=== PATIENT | female | born 1990 | race Caucasian/White ===

== ENCOUNTER 2021-11-12 09:27 | Emergency (ER) | payer OTHER ==
[~2021-11-12 09:27] MED LIST: COLACE100 MG PO; DIAZEPAM 5MG TAB5 MG PO; FEOSOL325 MG PO; MOTRIN600 MG PO; ONDANSETRON ODT4 MG PO
[2021-11-12 10:35] LABS: CORONAVIRUS 2019 SARS-COV-2 NEGATIVE (NEGATIVE); INFLUENZA A NAA NEGATIVE (NEGATIVE)
[2021-11-12 12:26] LABS: BASOPHIL 0.4 % (0-2); HCT 39.2 % (37.0-47.0); HGB 13.7 g/dl (12.5-16.0); LYMPHOCYTE 26.4 % (15-48); MCH 30.9 pg (25.0-31.0); MCHC 34.9 g/dL (32.0-36.0); MCV 88.5 fL (78.0-100.0); MONOCYTE 4.9 % (0-12); MPV 9.5 fL (6.0-9.5); NEUTROPHIL 66.1 % (41-80); NRBC 0; PLT 230 K/uL (150-400); RBC 4.43 M/uL (4.20-5.40); RDW 12.1 % (11.5-14.0); WBC 10.1 K/uL (4.0-10.5)
[2021-11-12 12:52] LABS: BUN/CREAT RATIO (CALC) 11.7 RATIO; CREATININE 0.6 mg/dL (0.51-0.95); POTASSIUM 4.3 mmol/L (3.5-5.1)
[2021-11-12 13:31] LABS: BILIRUBIN NEGATIVE (NEGATIVE); BLOOD 3+ Ery/uL (NEGATIVE); CLARITY CLEAR (CLEAR); COLOR YELLOW (YELLOW); GLUCOSE (U) NORMAL (NORMAL); LEUKOCYTES NEGATIVE Leu/uL (NEGATIVE); NITRITE NEGATIVE (NEGATIVE); PROTEIN NEGATIVE (NEGATIVE); SPECIFIC GRAVITY 1.025 (1.001-1.030); UROBILINOGEN 0.2 mg/dL (0.2-1.0); pH 6.5 (5.0-9.0)
[2021-11-12 13:47] LABS: AMPHETAMINES NEGATIVE (NEGATIVE); BARBITURATES NEGATIVE (NEGATIVE); ECSTASY (MDMA) NEGATIVE (NEGATIVE); MARIJUANA (THC) NEGATIVE (NEGATIVE); METHADONE NEGATIVE (NEGATIVE); OPIATES POSITIVE (NEGATIVE); OXYCODONE NEGATIVE (NEGATIVE)
[2021-11-12 13:49] LABS: URINARY WBC RARE
[2021-11-12 13:50] LABS: BACTERIA TRACE; URINARY RBC 20-50
== END 2021-11-12 14:08 | disposition home or self-care (01) ==
LOC: FER 09:27
PROVIDERS: Emergency Medicine; Nurse Practitioner Family
DX: B34.9 Viral infection, unspecified (principal); R55 Syncope and collapse; E86.0 Dehydration; Z20.822 Contact with and (suspected) exposure to COVID-19; Z88.1 Allergy status to other antibiotic agents
CPT/HCPCS: 36415; 80048; 80305; 81001; 85025; 99284; U0002

== ENCOUNTER → 2022-04-22 | Day surgery (SDC) | payer OTHER ==
[~2022-04-22] VITALS: Ht 162.6 cm; Wt 79.8 kg
[~2022-04-22] MED LIST changes: +BENTYL10 MG PO; +DICLOFENAC SODI75 MG PO; +PROTONIX 40MG T40 MG PO
[2022-04-22 07:47] LABS: HCG (URINE) SCREEN NEGATIVE (NEGATIVE)
== END | disposition home or self-care (01) ==
LOC: FAS 06:55
PROVIDERS: Surgery
DX: K21.9 Gastro-esophageal reflux disease without esophagitis (principal); K31.9 Disease of stomach and duodenum, unspecified; R10.32 Left lower quadrant pain; Z88.2 Allergy status to sulfonamides
CPT/HCPCS: 84703; J2704; J7120